=== PATIENT | female | born 1955 | race Caucasian/White ===

== ENCOUNTER → 2019-02-10 14:20 | Outpatient (CLI) | payer OTHER, SELFPAY ==
[2018-11-15 09:40] VITALS: BMI 34.3
== END ==
PROVIDERS: Referring Provider Nurse Practitioner Family; Visit Provider Nurse Practitioner Family
DX: R05 Cough (principal); J22 Unspecified acute lower respiratory infection
CPT/HCPCS: 87070; 87075; 87077; 87205; 87798

== ENCOUNTER 2021-12-07 09:19 | Emergency (ER) | payer OTHER, SELFPAY ==
[2021-12-07 09:20] VITALS: BP 188/85; PULSE 95; RESP 18; TEMP 35.5; O2SAT 95; BMI 36.6
[2021-12-07 09:48] VITALS: BP 147/80; O2SAT 93
--- NOTE | 2021-12-07 10:01 | EDS_ITS ---
HPI History of Present Illness Chief Complaint: Hypertension Informant: patient Onset/Context/Timing Onset: Weeks (2) Context: Gradual Onset Timing: Continuous Quality: Dizziness, pressure Location: Head Worsened by: Nothing Relieved by: Nothing Narrative Narrative: Patient presents with elevated blood pressure that was noticed this morning. Patient states she checked her blood pressure at home and it was 200/109. Patient states that she has had elevated blood pressure readings at home for the past 2 weeks. Patient states it has been constant. Patient admits to some dizziness and mild pressure in her head. Patient admits to some shortness of breath and cough. Patient denies any chest pain. Patient denies any nausea or vomiting. Patient denies any fevers or chills. Patient does not have a primary care physician. [facility] Medical History Hx of viral pneumonia Home Medications NK 11/15/18 [History Last Taken Unknown] Allergy/AdvReac Type Severity Reaction Status Date / Time house dust Allergy Unknown Verified 12/07/21 09:21 mold Allergy Unknown Verified 12/07/21 09:21 tree and shrub pollen Allergy Unknown Verified 12/07/21 09:21 Surgical History cryotherapy on cervix Social History (Updated 12/07/21 @ 10:[address] Mahad Espana DO) Smoking Status: Current every day smoker tobacco type: cigarettes ROS ROS ED Constitutional Constitutional ED: Denies chills or fever(s) Eyes Eyes: Denies blurry vision or change in vision ENT ENT ED: Denies rhinorrhea or sore throat Cardiovascular Cardiovascular: Denies chest pain or palpitations Respiratory/Chest Respiratory/Chest: Reports cough and dyspnea Gastrointestinal Gastrointestinal: Denies nausea or vomiting Genitourinary Genitourinary ED: Denies dysuria or hematuria Musculoskeletal Musculoskeletal: Denies back pain or neck pain Integumentary Denies abscess or rash Neurologic Neurologic: Reports headache(s); Denies weakness Allergic/Immunologic Allergic/Immunologic ED: Denies mouth swelling or urticaria EXAM Physical Exam Const Vital Signs: 12/07/21 09:20 12/07/21 09:47 12/07/21 09:48 Temperature 96 F L Temperature Source Temporal Pulse Rate 95 Respiratory Rate 18 Respiratory Effort Normal Respiratory Pattern Normal Blood Pressure 188/85 H 147/80 H Blood Pressure Mean 119 102 Pulse Ox 95 93 Oxygen Delivery Method Room Air Room Air 12/07/21 10:45 Temperature Temperature Source Pulse Rate 84 Respiratory Rate 12 Respiratory Effort Respiratory Pattern Blood Pressure 139/78 H Blood Pressure Mean 98 Pulse Ox 92 Oxygen Delivery Method Room Air Positive well nourished and well developed General Appearance ED: well developed HEENT Reports moist mucous membranes Neck supple and no JVD Resp normal respiratory effort and clear to auscultation bilaterally Cardio regular rate, regular rhythm and no murmurs GI normal to inspection, nondistended, normoactive bowel sounds and non-tender Palpation: soft Extremity normal to inspection General Extremety ED: Negative for edema or tenderness General Extremity: Negative for edema Neuro oriented x3, CN's II-XII intact bilaterally and no sensory deficits noted Sensorium / Orientation: alert Motor Exam: strength 5/5 throughout Psych mental status grossly normal Skin no rashes or lesions noted MDM MDM MDM Narrative Medical decision making narrative: EKG was obtained. On my interpretation, it showed a normal sinus rhythm with a rate of 78. [place] interval, QRS interval, and QTc intervals were all normal. [place] was normal. There are no acute ST or T wave changes. CBC was essentially within normal limits. Comprehensive metabolic profile was within normal limits. High-sensitivity troponin was normal. PA and lateral chest x-ray was obtained. There are 2 views. On my interpretation, lung villa show scarring in the lung bases bilaterally. There is some blunting of the right costophrenic angle. There is normal cardiac silhouette. Bony thorax is normal. There is no acute process noted. Radiologist also interpreted the x-ray and agrees. Patient's blood pressure improved to 147/80 and then to 139/78 without any medications. Patient is feeling better on reevaluation. Patient was advised of her findings. I do not feel that the patient needs to be started on antihypertensive medications from the emergency department. Patient was given a referral for a primary care physician for follow-up care in 5 to 7 days. Patient was instructed to continue to monitor her blood pressure and keep a daily log of her blood pressures. Patient was instructed to return if worse in any way. Patient understood and was agreeable with the plan. All questions were answered. Lab Data Attestation: I reviewed the patient's lab results. Labs: Laboratory Results - last 24 hr 12/07/21 12/07/21 10:15 10:15 WBC 7.2 RBC 4.76 Hgb 15.7 H Hct 48.1 H MCV 101.1 H MCH 33.0 H MCHC 32.6 RDW Std Deviation 50.5 H RDW Coeff of June 13.4 Plt Count 225 MPV 9.4 Immature Gran % (Auto) 0.600 Neut % (Auto) 75.3 H Lymph % (Auto) 16.3 L [place] % (Auto) 5.7 Eos % (Auto) 1.5 Baso % (Auto) 0.6 Absolute Neuts (auto) 5.4 Absolute Lymphs (auto) 1.18 Nucleated RBC % 0 Sodium 141 Potassium 4.5 Chloride 105 Carbon Dioxide 32.0 Anion Gap 4 L BUN 15 Creatinine 0.85 Estim Creat Clear Calc 57.79 Est GFR (MDRD) Af Amer 86 Est GFR (MDRD) Non-Af 71 BUN/Creatinine Ratio 17.6 Glucose 111 H Calcium 9.1 Total Bilirubin 0.30 AST 14 L ALT 25 Alkaline Phosphatase 94 Troponin I High Sens 11 Total Protein 7.2 Albumin 3.4 Globulin 3.8 Albumin/Globulin Ratio 0.9 Radiography Chest X-Ray - ED: 2 View, Read by ED Physician, Read by Radiologist, No Acute Disease and Chronic Changes Diagnostic Testing: Clinical Impression(s) from Imaging Studies Chest X-Ray 12/07/21 10:04 IMPRESSION: Mild increased markings at the lung bases suggestive of scarring with a stable blunting of the right costophrenic angle. Electronically Signed: Vipul Ojeda MD at 10:42 EDT , EKG Initial EKG: Interpretation: Sinus Rhythm (78) and No Acute Injury Pattern Prior EKG tracings: available for review Prior: Unchanged (02/08/2015) Discharge Plan Triage Chief Complaint: Hypertension ED Provider: Mahad Espana Dx/Rx/DC Orders Clinical Impression: High blood pressure, Tobacco user Instructions: ED Hypertension, To Be Confirmed Prescriptions: No Action NK Primary Care Provider: Care Physician,No Primary Referrals: Tommie Frye MD [Med Staff - Production Hardener] - 5-7 Days Care Physician,No Primary [Primary Care Provider] - Disposition Disposition: Home, Self Care
--- NOTE | 2021-12-07 10:04 | RAD_ITS ---
STUDY: X-RAY CHEST REASON FOR EXAM: Female, 66 years old. Cough TECHNIQUE: PA and lateral views of the chest. COMPARISON: Comparison is made with prior study dated 02/08/2015. FINDINGS: EKG electrodes are seen. Stable blunting of the right costophrenic angle with mild increased markings at the lung bases suggestive of scarring. Normal size heart. Normal mediastinum and gilles. Normal visualized pulmonary arteries. There is atherosclerotic calcification of the aortic arch with tortuosity. There is demineralization of the osseous structures. Normal visualized ribs, clavicles, and shoulders. There is no demonstrated abnormality of the visualized soft tissue structures of the upper abdomen. RAD/Chest PA and Lateral IMPRESSION: Mild increased markings at the lung bases suggestive of scarring with a stable blunting of the right costophrenic angle. Electronically Signed: Vipul Ojeda MD at 10:42 EDT ,
--- NOTE | 2021-12-07 10:04 | EKG12_ITS ---
Test Reason : Blood Pressure : / mmHG Vent. Rate : 078 BPM Atrial Rate : 078 BPM P-R Int : 160 ms QRS Dur : 084 ms QT Int : 394 ms P-R-T Axes : 079 043 070 degrees QTc Int : 449 ms Normal sinus rhythm Normal ECG Confirmed by AYLA BARTLETT, LINDSEY ([id number]), fan mail editor MARIA L CASTREJON ([id number]) on 12/08/2021 12:59:36 P M Referred By: Confirmed By:JAXON AGUILA MD
[2021-12-07 10:22] LABS: Absolute Lymphocyte Count 1.18 X10^3/uL (0.83-4.51); Absolute Neutrophil Count 5.4 X10^3/uL (2.0-7.7); Basophil# 0.04 X10^3/uL; Basophil% 0.6 % (0-1); Eosinophil# 0.11 X10^3/uL; Eosinophils% 1.5 % (0-5); Hematocrit 48.1 % (37-47); Hemoglobin 15.7 g/dL (12.0-15.0); Lymphocyte # 1.18 X10^3/ul (0.83-4.51); Lymphocyte % 16.3 % (19-41); Mean Corp Hgb Conc 32.6 g/dL (32-36); Mean Corpuscular Volume 101.1 fL (81-99); Mean Platelet Vol. 9.4 fl (6.2-12.0); Monocyte# 0.41 X10^3/uL; Monocyte% 5.7 % (0-10); NRBC Flagged by Analyzer 0 % (0-5); Neutrophil # 5.44 X10^3/uL (2.7-7.7); Neutrophil % 75.3 % (47-70); Platelet Count 225 K/mm3 (150-450); RBC Distribution Width CV 13.4 % (11.6-14.6); RBC Distribution Width SD 50.5 fl (35.1-43.9); Red Blood Count 4.76 M/mm3 (4.2-5.4); White Blood Count 7.2 K/mm3 (4.4-11.0)
[2021-12-07 10:40] LABS: ALB/GLOB Ratio 0.9 RATIO (0.9-2.4); AST(SGOT) 14 U/L (15-37); Alanine Aminotransfer ALT/SGPT 25 U/L (13-56); Albumin, Serum 3.4 g/dL (3.2-5.0); Alkaline Phosphatase 94 U/L (45-117); Anion Gap 4 (5-15); BUN 15 mg/dL (7-18); BUN/Creat Ratio 17.6 RATIO (10-20); Calcium,Total 9.1 mg/dL (8.5-10.1); Chloride 105 mmol/L (98-107); Creatinine, Serum 0.85 mg/dL (0.55-1.02); EST Glomerular Filtration Rate 71 mL/min (>60); Est Glom Filt Rate - Afr Amer 86 mL/min (>60); Estimated Creatinine Clearance 57.79 ml/min; Globulin 3.8 g/dL (2.2-4.2); Glucose 111 mg/dL (74-106); Potassium 4.5 mmol/L (3.5-5.1); Protein, Total 7.2 g/dL (6.4-8.2); Sodium Level 141 mmol/L (136-145); Troponin-I HS 11 pg/mL (3.0-54.0)
[2021-12-07 10:45] VITALS: BP 139/78; PULSE 84; RESP 12; O2SAT 92
[2021-12-07 11:08] VITALS: BP 148/67; PULSE 82; RESP 15; O2SAT 98
== END 2021-12-07 11:09 | disposition home or self-care (01) ==
PROVIDERS: Emergency Provider Emergency Medicine; Visit Provider Emergency Medicine
DX: J98.4 Other disorders of lung (principal); F17.210 Nicotine dependence, cigarettes, uncomplicated; R03.0 Elevated blood-pressure reading, without diagnosis of hypertension
CPT/HCPCS: 71046; 80053; 84484; 85025; 93005; 99284

== ENCOUNTER 2021-12-15 13:06 | Emergency (ER) | payer OTHER, SELFPAY ==
[2021-12-15 13:06] VITALS: BP 182/76; PULSE 82; RESP 18; TEMP 36.4; O2SAT 95; BMI 35.7
[2021-12-15 14:00] VITALS: BP 156/82; PULSE 83; RESP 16; O2SAT 94
--- NOTE | 2021-12-15 21:25 | EX.ED.DYSGE1 ---
HPI History of Present Illness Chief Complaint: Hypertension [facility] Medical History (Updated 12/15/21 @ 14:01 by Zia Leigh) HTN (hypertension) Hx of viral pneumonia Home Medications lisinopril 10 mg tablet 10 mg PO DAILY 12/15/21 [History Last Taken Unknown] multivitamin 1 tab PO DAILY 12/15/21 [History Last Taken Unknown] Allergy/AdvReac Type Severity Reaction Status Date / Time house dust Allergy Unknown Verified 12/15/21 13:09 mold Allergy Unknown Verified 12/15/21 13:09 tree and shrub pollen Allergy Unknown Verified 12/15/21 13:09 Surgical History cryotherapy on cervix Social History (Updated 12/07/21 @ 10:[address] Mahad Espana DO) Smoking Status: Current every day smoker tobacco type: cigarettes EXAM Physical Exam Const Vital Signs: 12/15/21 13:06 12/15/21 14:00 12/15/21 14:00 Temperature 97.5 F L Temperature Source Temporal Pulse Rate 82 83 Respiratory Rate 18 16 Respiratory Pattern Normal Blood Pressure 182/76 H 156/82 H Blood Pressure Mean 111 106 Pulse Ox 95 94 Oxygen Delivery Method Room Air Room Air Discharge Plan Triage Chief Complaint: Hypertension ED Provider: Christian Paulson Dx/Rx/DC Orders Prescriptions: No Action multivitamin Tablet 1 tab PO DAILY lisinopril 10 mg Tablet 10 mg PO DAILY Primary Care Provider: Care Physician,No Primary Referrals: Care Physician,No Primary [Primary Care Provider] -
== END 2021-12-15 23:59 | disposition left against medical advice (07) ==
LOC: ED 06-13 17:12
PROVIDERS: Emergency Provider Student in an Organized Health Care Education/Training Program; Visit Provider Student in an Organized Health Care Education/Training Program
DX: Z00.00 Encounter for general adult medical examination without abnormal findings (principal)
CPT/HCPCS: 99282

== ENCOUNTER → 2024-07-17 | Outpatient (CLI) | payer MEDICARE, OTHER, SELFPAY ==
[2024-07-17 15:09] LABS: Absolute Lymphocyte Count 1.21 X10^3/uL (0.83-4.51); Absolute Neutrophil Count 6.7 X10^3/uL (2.0-7.7); Basophil# 0.06 X10^3/uL; Basophil% 0.7 % (0-1); Eosinophil# 0.11 X10^3/uL; Eosinophils% 1.3 % (0-5); Hematocrit 49.3 % (37-47); Hemoglobin 15.7 g/dL (12.0-15.0); Lymphocyte # 1.21 X10^3/ul (0.83-4.51); Lymphocyte % 14.1 % (19-41); Mean Corp Hgb Conc 31.8 g/dL (32-36); Mean Corpuscular Hgb 32.2 pg (27.0-32.0); Mean Platelet Vol. 9.8 fl (6.2-12.0); Monocyte# 0.44 X10^3/uL; Monocyte% 5.1 % (0-10); NRBC Flagged by Analyzer 0 % (0-5); Neutrophil # 6.74 X10^3/uL (2.7-7.7); Neutrophil % 78.3 % (47-70); Platelet Count 239 K/mm3 (150-450); RBC Distribution Width CV 14.1 % (11.6-14.6); RBC Distribution Width SD 52.8 fl (35.1-43.9); Red Blood Count 4.88 M/mm3 (4.2-5.4); White Blood Count 8.6 K/mm3 (4.4-11.0)
[2024-07-17 15:41] LABS: ALB/GLOB Ratio 1.2 RATIO (0.9-2.4); AST(SGOT) 21 U/L (<=31); Alanine Aminotransfer ALT/SGPT 21 U/L (<=34); Albumin, Serum 3.7 g/dL (3.4-4.8); Alkaline Phosphatase 103 U/L (35-104); Anion Gap 9 (5-15); BUN 14 mg/dL (4-19); BUN/Creat Ratio 17.1 RATIO (10-20); Calcium,Total 9.2 mg/dL (7.6-11.0); Carbon Dioxide 29.4 mmol/L (21.0-32.0); Chloride 103 mmol/L (98-108); Cholesterol 145 mg/dL (<=200); Creatinine, Serum 0.83 mg/dL (0.70-1.20); EST Glomerular Filtration Rate 76 (>60); Glucose 99 mg/dL (70-99); High Density Lipoprotein 52 mg/dL; Low Density Lipoprotein Calc. 79 mg/dL; Potassium 5.2 mmol/L (3.3-5.1); Protein, Total 6.8 g/dL (5.9-8.4); Sodium Level 141 mmol/L (133-145); Total Bilirubin 0.31 mg/dL (0.00-1.30); Triglycerides 74 mg/dL; Very Low Density Lipoprotein 15 mg/dL (5-40)
[2024-07-17 16:09] LABS: T4 Total, Thyroxin 9.2 ug/dL (4.8-13.9); Vitamin D,25 Hydroxy 27.9 ng/mL (30-100)
== END | disposition home or self-care (01) ==
LOC: MTLAB 12:44
PROVIDERS: PCP Family Medicine; Referring Provider Family Medicine; Visit Provider Family Medicine
DX: E03.9 Hypothyroidism, unspecified (principal); I10 Essential (primary) hypertension
CPT/HCPCS: 36415; 80053; 80061; 82306; 84436; 84443; 85025

== ENCOUNTER → 2024-07-26 | Outpatient (CLI) | payer MEDICARE, OTHER, SELFPAY ==
--- NOTE | 2024-07-26 08:43 | CT_ITS ---
EXAM: CT Chest, Lung Cancer Screening Without Intravenous Contrast CLINICAL INDICATION: CANCER SCREENING TECHNIQUE: Axial computed tomography images of the chest without intravenous contrast using low dose (LDCT) lung cancer screening protocol. This CT exam was performed using one or more of the following dose reduction techniques: automated exposure control, adjustment of the mA and/or kV according to patient size, and/or use of iterative reconstruction technique. COMPARISON: No relevant prior studies available. FINDINGS: LUNGS AND PLEURAL SPACES: Lung emphysema/COPD. 3 mm nodule of the anterior medial right upper lobe. 4 mm nodule of the anterior right middle lobe. Atelectasis or scarring of the medial right upper lobe. No pneumothorax. No significant effusion. HEART: Unremarkable. No cardiomegaly. No significant pericardial effusion. No significant coronary artery calcifications. BONES/JOINTS: Unremarkable. No acute fracture. No dislocation. SOFT TISSUES: Unremarkable. VASCULATURE: Unremarkable. No thoracic aortic aneurysm. LYMPH NODES: Unremarkable. No enlarged lymph nodes. CT/Low Dose CT Lung Screening IMPRESSION: 1. Pulmonary nodule of the right lung ratio of the 4 mm. 2. LUNG-RADS 2: Benign. Continue low-dose CT screening of the chest in 12 mon ths is recommended. Reading Location: [id number]
== END | disposition home or self-care (01) ==
LOC: CT 08:40
PROVIDERS: PCP Family Medicine; Referring Provider Family Medicine; Visit Provider Family Medicine
DX: Z12.2 Encounter for screening for malignant neoplasm of respiratory organs (principal); F17.210 Nicotine dependence, cigarettes, uncomplicated
CPT/HCPCS: 71271

== ENCOUNTER → 2024-08-12 | Outpatient (CLI) | payer MEDICARE, OTHER, SELFPAY ==
--- NOTE | 2024-08-12 12:50 | BD_ITS ---
PROCEDURE: DEXA BONE DENSITY STUDY 08/12/2024 REASON FOR EXAM: F, age 68 y/o . TECHNIQUE: DXA scan of sites with data reported below. Scanner utilized: [employer] W. [facility]FERENCE LINKS: [facility] Position[facility] COMPARISON: None FINDINGS: BMD and T-SCORES Lumbar spine: 0.837 g/cm2, T-score -1.9 Levels: L1 through L4 Left femoral neck: 0.450 g/cm2, T-score -3.6 Femoral neck comparison data not recommended for monitoring change. Left total hip: 0.588 g/cm2, T-score -1.4 Right femoral neck: 0.522 g/cm2, T-score -2.9 Femoral neck comparison data not recommended for monitoring change. Right total hip: 0.691 g/cm2, T-score -2.1 The World Health Organization has defined the following categories based on bone density: Normal bone density: T-score equal to or greater than -1.0 Osteopenia: T-score between -1.0 and -2.5 Osteoporosis: T-score equal to or less than -2.5 BD/Dexa Bone Density Study IMPRESSION: OSTEOPOROSIS. Reading Location: [facility]
== END | disposition home or self-care (01) ==
LOC: OPBD 12:44
PROVIDERS: PCP Family Medicine; Referring Provider Family Medicine; Visit Provider Family Medicine
DX: Z78.0 Asymptomatic menopausal state (principal)
CPT/HCPCS: 77080